=== PATIENT | female | born 1965 | race Asian ===

== ENCOUNTER 2017-07-07 12:09 | Emergency (ER) | payer OTHER ==
[2017-07-07] MEDS ORDERED: MOTRIN PO ONE (19:54)
[2017-07-07] MEDS ORDERED: FLEXERIL PO ONE (19:54)
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
--- NOTE | 2017-07-07 20:39 | Cat Scan Report ---
FINAL REPORT PROCEDURE: CT CERVICAL SPINE WO CON TECHNIQUE: Computerized tomography of the cervical spine was performed from the skull base to T1 without contrast material. HISTORY: ct c-spine COMPARISON: No prior studies are available for comparison. FINDINGS: There is loss of cervical lordosis. C1-2: No significant abnormality. C2-3: No significant abnormality. C3-4: Mild degree right neural foraminal stenosis is noted secondary to moderate degree right facet arthropathy.. C4-5: No significant abnormality. C5-6: No significant abnormality. C6-7: No significant abnormality. C7-T1: No significant abnormality. Other: No additional findings. IMPRESSION: Straightening of the cervical spine is most likely secondary to spasm or positioning. No acute fracture Mild degree cervical spondylosis at C3-4..
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
[2017-07-07 20:58] VITALS: BP 137/78
== END 2017-07-07 21:16 | disposition home or self-care (01) ==
LOC: ED 12:09
DX: M54.2 Cervicalgia (principal); R51 Headache; V49.49XA Driver injured in collision with other motor vehicles in traffic accident, initial encounter; Y93.89 Activity, other specified; Y92.89 Other specified places as the place of occurrence of the external cause; Y99.8 Other external cause status
CPT/HCPCS: 70450; 72125